=== PATIENT | male | born 1940 | race Caucasian/White ===

== ENCOUNTER 2018-06-07 09:18 | Emergency (ER) | payer OTHER ==
[~2018-06-07] VITALS: Ht 172.7 cm; Wt 98.4 kg
[~2018-06-07 09:18] MED LIST: ASA5UEC PO; FLEXERIL PO; GABAPENTIN100 MG PO; GLUCOPHAGE1000 MG PO; GLYBURIDE 2.52.5 M1 PO; GRALISE1 EACH PO; LOPRESSOR 50 MG50 M1 PO; MINOCYCLINE HC100 M2 PO; PERCOCET 5-3251 EACH PO; PRAVACHOL 20 MG20 M1 PO; TRICOR145 MG PO
[2018-06-07] MEDS ORDERED: XARELTO20 MG PO (09:31)
[2018-06-07] MEDS ORDERED: VITAMIN B-12500 MCG PO (09:31)
[2018-06-07] MEDS ORDERED: VITAMIN D2000 UNIT PO (09:32)
[2018-06-07 09:55] LABS: ABSOLUTE BASOPHILS 0.1 thou/uL (0.0-0.2); ABSOLUTE EOSINOPHILS 0.6 thou/uL (0.0-0.7); ABSOLUTE LYMPHOCYTES 2.6 thou/uL (0.8-5.3); ABSOLUTE MONOCYTES 0.7 thou/uL (0.0-1.2); ABSOLUTE NEUTROPHILS 6.9 thou/uL (1.6-8.1); BASOPHILS 0.9 %; EOSINOPHILS 5.2 %; HEMATOCRIT 32.9 % (42.0-52.0); HEMOGLOBIN 11.4 gm/dL (14.0-18.0); LYMPHOCYTES 23.6 %; MCH 32.3 pg (26.0-34.0); MCHC 34.6 g/dL (28.0-37.0); MCV 93.5 fL (80.0-100.0); MONOCYTES 6.3 %; MPV 8.8 fl. (7.2-11.1); NUCLEATED RBCS 0 /100WBC; PLATELET COUNT* 207 thou/uL (150-400); RBC 3.52 mil/uL (4.50-6.00); RDW-CV 13.6 % (10.5-14.5); WBC 10.8 thou/uL (4.0-11.0)
[2018-06-07 10:06] LABS: APTT 27.8 Seconds (25.0-31.3); INR 1.2
[2018-06-07 10:07] LABS: CALCIUM 9.9 mg/dL (8.5-10.1); CREATININE 1.2 mg/dL (0.6-1.3); POTASSIUM 4.2 mmol/L (3.5-5.1)
[2018-06-07 10:11] LABS: ALBUMIN 3.3 g/dL (3.4-5.0); TOTAL BILIRUBIN 0.5 mg/dL (<0.1-1.0); TOTAL PROTEIN 6.7 g/dL (6.4-8.2)
[2018-06-07 11:44] VITALS: BP 123/63
== END 2018-06-07 11:45 | disposition home or self-care (01) ==
LOC: M.ERS 09:18
PROVIDERS: Family Medicine
DX: S30.0XXA Contusion of lower back and pelvis, initial encounter (principal); S30.1XXA Contusion of abdominal wall, initial encounter; S40.212A Abrasion of left shoulder, initial encounter; E11.9 Type 2 diabetes mellitus without complications; W18.39XA Other fall on same level, initial encounter; Y93.89 Activity, other specified; Y92.89 Other specified places as the place of occurrence of the external cause; Y99.8 Other external cause status; I48.91 Unspecified atrial fibrillation; Z96.652 Presence of left artificial knee joint

== ENCOUNTER → 2019-10-14 | Outpatient (CLI) | payer OTHER ==
[~2019-10-14] MED LIST changes: +VITAMIN B-12500 MCG PO; +VITAMIN D2000 UNIT PO; +XARELTO20 MG PO
== END ==
LOC: M.WC 08:58
DX: E11.622 Type 2 diabetes mellitus with other skin ulcer (principal); I87.313 Chronic venous hypertension (idiopathic) with ulcer of bilateral lower extremity; I70.238 Atherosclerosis of native arteries of right leg with ulceration of other part of lower leg; L97.822 Non-pressure chronic ulcer of other part of left lower leg with fat layer exposed; I70.248 Atherosclerosis of native arteries of left leg with ulceration of other part of lower leg; L97.812 Non-pressure chronic ulcer of other part of right lower leg with fat layer exposed; E11.42 Type 2 diabetes mellitus with diabetic polyneuropathy; E11.65 Type 2 diabetes mellitus with hyperglycemia; E78.00 Pure hypercholesterolemia, unspecified; I48.91 Unspecified atrial fibrillation; Z87.891 Personal history of nicotine dependence; Z96.652 Presence of left artificial knee joint

== ENCOUNTER → 2019-11-05 | Outpatient (CLI) | payer OTHER | LOC: M.WC 10-22 11:00 → M.ULTRA 10-22 13:00 | DX: L97.929 Non-pressure chronic ulcer of unspecified part of left lower leg with unspecified severity (principal); L97.919 Non-pressure chronic ulcer of unspecified part of right lower leg with unspecified severity; I73.9 Peripheral vascular disease, unspecified; E11.9 Type 2 diabetes mellitus without complications ==

== ENCOUNTER → 2019-11-19 | Outpatient (CLI) | payer OTHER | LOC: M.WC 03:43 | DX: E11.622 Type 2 diabetes mellitus with other skin ulcer (principal); I87.313 Chronic venous hypertension (idiopathic) with ulcer of bilateral lower extremity; I70.203 Unspecified atherosclerosis of native arteries of extremities, bilateral legs; I48.91 Unspecified atrial fibrillation; E11.42 Type 2 diabetes mellitus with diabetic polyneuropathy; E78.00 Pure hypercholesterolemia, unspecified; E11.65 Type 2 diabetes mellitus with hyperglycemia; Z87.891 Personal history of nicotine dependence ==

== ENCOUNTER 2020-03-11 13:58 | Emergency (ER) | payer OTHER ==
[~2020-03-11] VITALS: Ht 167.6 cm; Wt 104.3 kg
[2020-03-11 17:06] VITALS: BP 118/75
== END 2020-03-11 17:07 | disposition home or self-care (01) ==
LOC: M.ERS 13:58
DX: S70.02XA Contusion of left hip, initial encounter (principal); I48.91 Unspecified atrial fibrillation; E11.9 Type 2 diabetes mellitus without complications; Z96.652 Presence of left artificial knee joint; W18.39XA Other fall on same level, initial encounter; Y93.89 Activity, other specified; Y92.098 Other place in other non-institutional residence as the place of occurrence of the external cause; Y99.8 Other external cause status